=== PATIENT | male | born 1955 | race Caucasian/White ===

== ENCOUNTER 2017-04-13 19:19 | Emergency (ER) | payer OTHER ==
[2017-04-13 19:21] VITALS: BP 185/90; PULSE 52; RESP 18; TEMP 97.8; O2SAT 98
[2017-04-13] MEDS ORDERED: MORPHINE SULFATE 4 MG/ML INJ IV PUSH ONE (20:45)
[2017-04-13] MEDS ORDERED: ONDANSETRON HCL 4 MG/2 ML VIAL IV PUSH ONE (20:45)
[2017-04-13] MEDS ORDERED: KETOROLAC TROMETHAMINE 30 MG/ML (IVP) VIAL IV PUSH ONE (20:45)
[2017-04-13] MEDS ORDERED: TAMSULOSIN HCL 0.4 MG CAP PO ONE (20:45)
[2017-04-13] MEDS ORDERED: SODIUM CHLOR 0.9% 1000 ML INJ 1,000 ML IV ONE (20:45)
[2017-04-13] MEDS ORDERED: ATOR40TA16 PO (20:46)
[2017-04-13] MEDS ORDERED: LOSA100T PO (20:46)
[2017-04-13] MEDS ORDERED: ASPI81CH6 CHEW (20:46)
[2017-04-13 20:57] LABS: AUTOMATED NEUTROPHIL # 2.9 TH/MM3 (1.8-7.7); BASOPHIL % 0.9 % (0.0-2.0); EOSINOPHIL # 0.1 TH/MM3 (0-0.4); EOSINOPHIL % 2.6 % (0.0-4.0); HEMATOCRIT 43.7 % (39.0-51.0); HEMO FLAGS DIFF FINAL; LYMPHOCYTE # 1.4 TH/MM3 (1.0-4.8); MEAN CELL VOLUME 93.6 FL (80.0-100.0); MEAN CORPUSCULAR HEMOGLOBIN 32.1 PG (27.0-34.0); MEAN CORPUSCULAR HGB CONC 34.3 % (32.0-36.0); NEUT % 57.5 % (16.0-70.0); PLATELET COUNT 208 TH/MM3 (150-450); RED BLOOD COUNT 4.67 MIL/MM3 (4.50-5.90); RED CELL DISTRIBUTION WIDTH 12.6 % (11.6-17.2); WHITE BLOOD COUNT 5.1 TH/MM3 (4.0-11.0)
[2017-04-13 21:10] LABS: BICARBONATE 25.4 MEQ/L (21.0-32.0); POTASSIUM 4.1 MEQ/L (3.5-5.1)
--- NOTE | 2017-04-13 21:29 | PD ---
HPI . L flank pain Chief Complaint: Flank/Kidney Pain Time Seen by Provider: 20:45 Travel History International Travel<30 days: No Contact w/Intl Traveler<30days: No Traveled to known affect area: No History of Present Illness HPI Pt is a 62yo male with previous hx of renal calculi who presents to ED with L flank pain x 1 day. Pt states the pain started in his L flank and migrated to his L groin. The pain is rated 7/10. Pt recently passed a 4mm stone 2 wks ago. Pt also has nausea w/o vomiting or fever. Pt has no modifiers. Pt has not been evaluated by urology in many years. Pt is originally from [place], [place]. Pt also states that he gets "hives when he takes hydrocodone". Pt's PMHx is positive for HTN, IN, s/p stent placement, tobacco and occasional EtOH use. PFSH Past Medical History Hx Anticoagulant Therapy: Yes (ASA) Cardiovascular Problems: Yes (HTN, IN WITH STENTS) Diabetes: No Patient Takes Glucophage: No Diminished Hearing: No Hypertension: Yes Kidney Stones: Yes Immunizations Current: Yes Myocardial Infarction: Yes (2009) Tetanus Vaccination: < 5 Years Influenza Vaccination: Yes Past Surgical History Cardiac Surgery: Yes (2 STENTS 2008, 2009) Tonsillectomy: Yes Social History Alcohol Use: Yes (OCCASIONAL) Tobacco Use: Yes Substance Use: No Allergies-Medications (Allergen,Severity, Reaction): Coded Allergies: hydrocodone (Verified Allergy, Severe, Anaphylaxis, 04/13/17) Reported Meds & Prescriptions Reported Meds & Active Scripts Active Reported Aspirin Low Dose (Aspirin) 81 Mg Chew 81 Mg CHEW DAILY Losartan (Losartan Potassium) 100 Mg Tab 100 Mg PO DAILY Atorvastatin (Atorvastatin Calcium) 40 Mg Tab 40 Mg PO HS Review of Systems Except as stated in HPI: all other systems reviewed are Neg General / Constitutional: No: Fever, Chills, Weight Gain, Weight Loss, Other Eyes: No: Diploplia, Blurred Vision, Photophobia, Drainage, Redness, Foreign Body Sensation, Pain, Tearing, Blind Spots, Visual changes, Blindness, Other HENT: No: Headaches, Vertigo, Lightheadedness, Sore Throat, Rhinitis, Rhinorrhea, Congestion, Nosebleed, Neck Stiffness, Neck Pain, Masses, Gingival Bleeding, Dental Difficulties, Ear Discharge, Earache, Other Cardiovascular: No: Chest Pain or Discomfort, Palpitations, Irregular Rhythm, Tachycardia, Diaphoresis, Syncope, Dyspnea on exertion, Varicosities, Edema, Cyanosis, Varicosities, Phlebitis, Claudication, Other Respiratory: No: Cough, Shortness of Breath, Wheezing, Sneezing, Orthopnea, Hemoptysis, Stridor, Night Sweats, Pleuritic Pain, Other Gastrointestinal: Positive: Nausea Genitourinary: Positive: Dysuria, Decreased Urinary Output, Flank Pain Musculoskeletal: No: Myalgias, Arthralgias, Limited ROM, Weakness, Cramping, Edema, Pain, Atrophy, Other Skin: No Rash, No Itching, No Dryness, No Lumps, No Hives, No Change in Pigmentation, No Change in nails, No Alopecia, No Lesions, No Breast Lumps, No Breast Tenderness, No Breast Swelling, No Other Neurologic: No: Weakness, Dizziness, Syncope, Focal Abnormalities, Coordination Problem, Tremor, Ataxia, Headache, Change in Mentation, Slurred Speech, Paresthesia, Incontinence, Seizures, Sensory Disturbance, Other Psychiatric: No: Anxiety, Depression, Suicidal Ideations, Disorder of Thought, Mood Disorder, Substance Abuse, Homicidal Ideation, Other Endocrine: No: Heat Intolerance, Cold Intolerance, Polyuria, Polydipsia, Other Hematologic/Lymphatic: No: Easy Bruising, Lymph Node Enlargement, Other Physical Exam Narrative GENERAL: awake, alert, and oriented. Mild Distress. HEAD: atraumatic, normocephalic. ENT: TM's clear and visible. no erythema. SKIN: warm, dry, no tinting or cyanosis. NECK: supple. no lymphadenopathy. ABDOMEN: soft nontender, nondistended. mild suprapubic discomfort to palpation. mild CVA tenderness noted on L. CV: RRR no rubs, gallops, or murmurs. equal distal pulses. good capillary refill. RESPIRATORY: CTA bilat. no wheezes, rales, or rhonchi. good aeration and breath sounds throughout. PSYCH: appropriate mood and affect. Data Data Last Documented VS Vital Signs Date Time Temp Pulse Resp B/P (MAP) Pulse Ox O2 Delivery O2 Flow Rate FiO2 04/13/17 19:21 97.8 52 18 185/90 (121) 98 Room Air Orders Orders Complete Blood Count With Diff (04/13/17 19:41) Basic Metabolic Panel (Bmp) (04/13/17 19:41) Urinalysis - C+S If Indicated (04/13/17 19:41) Sodium Chlor 0.9% 1000 Ml Inj (Ns 1000 M (04/13/17 20:45) Morphine Inj (Morphine Inj) (04/13/17 20:45) Ondansetron Inj (Zofran Inj) (04/13/17 20:45) Ketorolac Inj (Toradol Inj) (04/13/17 20:45) Tamsulosin (Flomax) (04/13/17 20:45) Labs Laboratory Tests Test 04/13/17 20:20 04/13/17 20:25 White Blood Count 5.1 TH/MM3 Red Blood Count 4.67 MIL/MM3 Hemoglobin 15.0 GM/DL Hematocrit 43.7 % Mean Corpuscular Volume 93.6 FL Mean Corpuscular Hemoglobin 32.1 PG Mean Corpuscular Hemoglobin Concent 34.3 % Red Cell Distribution Width 12.6 % Platelet Count 208 TH/MM3 Mean Platelet Volume 7.5 FL Neutrophils (%) (Auto) 57.5 % Lymphocytes (%) (Auto) 28.0 % Monocytes (%) (Auto) 11.0 % Eosinophils (%) (Auto) 2.6 % Basophils (%) (Auto) 0.9 % Neutrophils # (Auto) 2.9 TH/MM3 Lymphocytes # (Auto) 1.4 TH/MM3 Monocytes # (Auto) 0.6 TH/MM3 Eosinophils # (Auto) 0.1 TH/MM3 Basophils # (Auto) 0.0 TH/MM3 CBC Comment DIFF FINAL Differential Comment Blood Urea Nitrogen 22 MG/DL Creatinine 1.36 MG/DL Random Glucose 113 MG/DL Calcium Level 8.3 MG/DL Sodium Level 138 MEQ/L Potassium Level 4.1 MEQ/L Chloride Level 105 MEQ/L Carbon Dioxide Level 25.4 MEQ/L Anion Gap 8 MEQ/L Estimat Glomerular Filtration Rate 53 ML/MIN Urine Color YELLOW Urine Turbidity CLEAR Urine pH 5.0 Urine Specific Crane 1.021 Urine Protein NEG mg/dL Urine Glucose (UA) NEG mg/dL Urine Ketones NEG mg/dL Urine Occult Blood NEG Urine Nitrite NEG Urine Bilirubin NEG Urine Urobilinogen LESS THAN 2.0 MG/DL Urine Leukocyte Esterase NEG Urine RBC LESS THAN 1 /hpf Urine WBC LESS THAN 1 /hpf Urine Mucus FEW /lpf Microscopic Urinalysis Comment CULT NOT INDICATED MDM Medical Decision Making Medical Screen Exam Complete: Yes Emergency Medical Condition: Yes Differential Diagnosis Renal Calculi vs. Ureteral Calculi vs. abdominal muscle strain vs. pyelonephritis vs. hydronephrosis. Narrative Course IV was started and he was given IV fluids and IV analgesics. He was given Flomax. His pain has completely resolved. CBC & BMP Diagram 04/13/17 20:20 Calcium Level 8.3 L UA is clear. This patient reports that he has had numerous previous kidney stones and that they always passed without difficulty. He has it never had to have lithotripsy or basket extraction or ureteral stent. He will be discharged. Him a prescription for Percocet, Phenergan and Flomax. Diagnosis Primary Impression: Renal colic Patient Instructions: General Instructions, Narcotic given in the ED, Renal Colic (DC) Med/Other Pt SpecificInfo: Prescription(s) given Scripts Tamsulosin (Flomax) 0.4 Mg Cap 0.4 MG PO HS for Manage Prostate Problems, #30 CAP 0 Refills Prov: Rochelle Horne MD 04/13/17 Promethazine (Phenergan) 25 Mg Tablet 25 MG PO Q6H Y for NAUSEA OR VOMITING, #12 TAB 0 Refills Prov: Rochelle Horne MD 04/13/17 Oxycodone-Acetaminophen (Percocet) 5-325 mg Tab 1 TAB PO Q4H Y for PAIN, #12 TAB 0 Refills Prov: Rochelle Horne MD 04/13/17 Disposition: 01 DISCHARGE HOME Condition: Stable Rochelle Horne MD Apr 13, 2017 21:29
[2017-04-13 21:50] LABS: BLOOD, URINE NEG (NEG); COMMENT (UR) CULT NOT INDICATED; CULTURE IF INDICATED CULT NOT INDICATED; GLUCOSE,URINE NEG (NEG); KETONE, URINE NEG (NEG); MUCUS URINE FEW /lpf (OCC); NITRITE,URINE NEG (NEG); URINE COLOR YELLOW (YELLW/STRAW)
[2017-04-13] MEDS ORDERED: PERC5TAB12 PO (22:02)
[2017-04-13] MEDS ORDERED: PROM25TA10 PO (22:02)
[2017-04-13] MEDS ORDERED: TAMS5CAP PO (22:02)
== END 2017-04-13 23:32 | disposition home or self-care (01) ==
LOC: NEPD 19:19
DX: N23 Unspecified renal colic (principal); I10 Essential (primary) hypertension; Z72.0 Tobacco use
CPT/HCPCS: 80048; 81001; 85025; 96361; 96374; 96375; 99284; J1885; J2270; J2405; J7030